=== PATIENT | male | born 1995 | race Caucasian/White ===

== ENCOUNTER 2018-02-28 11:21 | Day surgery (SDC) | payer OTHER ==
[~2018-02-28 11:21] MED LIST: LIDOCAINE 2% (SDV) 5 ML INJ; ONDANSETRON 4 MG INJ
[2018-02-28] MEDS ORDERED: PROPOFOL 100 ML (13:12)
[2018-02-28] MEDS ORDERED: FENTAnyl 50 MCG/ML VIAL (13:15)
[2018-02-28] MEDS ORDERED: LABETALOL HCL 20MG INJ IV (13:30)
[2018-02-28] MEDS ORDERED: DIPHENHYDRAMINE 50 MG INJ IV (13:30)
[2018-02-28] MEDS ORDERED: MEPERIDINE 25 MG INJ IV (13:30)
[2018-02-28] MEDS ORDERED: ALBUTEROL 0.083% (NEB) 2.5 MG/3 ML AMP HHN (13:30)
[2018-02-28] MEDS ORDERED: hydrALAzine 20 MG INJ IV (13:30)
[2018-02-28] MEDS ORDERED: HYDROmorphONE (0.2 MG/ML) 10ML SYG IV ×3 (13:30)
[2018-02-28] MEDS ORDERED: MIDAZOLAM 1 MG/ML 2 ML INJ IV (13:30)
[2018-02-28] MEDS ORDERED: ONDANSETRON 4 MG INJ IV (13:30)
[2018-02-28] MEDS ORDERED: METOCLOPRAMIDE 10 MG INJ IV (13:30)
[2018-02-28] MEDS ORDERED: FENTAnyl 50 MCG/ML VIAL IV ×3 (13:30)
[2018-02-28] MEDS ORDERED: OXYCODONE/ACETAMINOPHEN (5/325) TAB PO ×2 (13:30)
[2018-02-28] MEDS ORDERED: DEXAMETHASONE 4 MG/ML 1 ML INJ (13:33)
[2018-02-28] MEDS ORDERED: LABETALOL HCL 20MG INJ (13:34)
[2018-02-28] MEDS: LIDOCAINE 1%/EPI 30 ML INJ (14:42)
[2018-02-28] MEDS: OXYMETAZOLINE 0.05% 15 ML NAS SPRAY NASAL (14:42)
== END 2018-02-28 16:03 | disposition home or self-care (01) ==
LOC: SDS 11:21
DX: J34.2 Deviated nasal septum (principal); J34.3 Hypertrophy of nasal turbinates
CPT/HCPCS: 30140; 88300